=== PATIENT | female | born 1995 | race Caucasian/White ===

== ENCOUNTER 2024-05-09 21:54 | Emergency (ER) | payer MEDICAID ==
[~2024-05-09] VITALS: Ht 165.1 cm; Wt 65.8 kg
[2024-05-09 22:03] VITALS: BP 145/75; PULSE 110; RESP 16; TEMP 98.3; O2SAT 99
[2024-05-09 22:54] VITALS: O2SAT 99
[2024-05-09] MEDS: MORPHINE SULFATE 4 MG/ML SYR IVP ONE (23:09)
[2024-05-10] MEDS ORDERED: IBUP-2213 PO (00:22)
[2024-05-10] MEDS ORDERED: ACET-8905 PO (00:22)
[2024-05-10 00:38] VITALS: BP 145/75; PULSE 110; RESP 16; TEMP 98.3; O2SAT 99
== END 2024-05-10 00:38 | disposition home or self-care (01) ==
LOC: MED 21:54
DX: S83.005A Unspecified dislocation of left patella, initial encounter (principal); S93.402A Sprain of unspecified ligament of left ankle, initial encounter; M25.552 Pain in left hip; R11.2 Nausea with vomiting, unspecified; F12.90 Cannabis use, unspecified, uncomplicated; Z98.890 Other specified postprocedural states; W05.1XXA Fall from non-moving nonmotorized scooter, initial encounter; Y93.89 Activity, other specified; Y92.410 Unspecified street and highway as the place of occurrence of the external cause; Y99.8 Other external cause status
CPT/HCPCS: 27560; 73502; 73560; 73610; 96374; 99285; J2270; Q0092